=== PATIENT | female | born 1945 | race Caucasian/White ===

== ENCOUNTER 2023-12-15 19:08 | Inpatient (IN) ==
--- NOTE | 2023-12-15 19:33 | Emergency Department Note ---
History of Present Illness General Chief Complaint: Abnormal Labs/Diagnostic Testing Stated Complaint: ABNORMAL LABS/BLOOD WORK, DOC REF Time Seen by Provider: 12/15/23 19:16 History of Present Illness Provider Complaint: + abnormal lab Description of abnormal result: Elevated kidney and liver function test Associated symptoms: + other (Difficulty urinating); no fever, no chills, no chest pain, no shortness of breath, no rash, no malaise or no abdominal pain Home Medications Medication Instructions Recorded Confirmed Type FERROUS SULFATE (FEOSOL) 1 tab PO DAILY ##0 03/19/13 12/11/23 History albuterol sulfate 90 mcg/actuation 2 puff inhalation Q6H PRN 04/15/23 12/11/23 History aerosol inhaler Shortness Of Breath Or Wheezing Elastic Band #1 ea 07/15/23 10/31/23 Rx labetalol 100 mg tablet 50 mg (1/2 x 100 mg) PO BID #90 08/07/23 12/15/23 Rx tabs amlodipine 5 mg tablet 5 mg PO DAILY #90 tabs 10/15/23 12/15/23 Rx atorvastatin 40 mg tablet 40 mg PO DAILY #90 tabs 10/15/23 12/15/23 Rx fluticasone 500 mcg-salmeterol 50 1 inh inhalation DAILY #60 ea 10/15/23 12/15/23 Rx mcg/dose blistr powdr for inhalation (Wixela Inhub) lisinopril 40 mg tablet 40 mg PO DAILY #90 tabs 10/15/23 12/15/23 Rx mirtazapine 15 mg tablet 15 mg PO HS #90 tabs 10/15/23 12/15/23 Rx pramipexole 0.5 mg tablet 0.5 mg PO QPM #90 tabs 10/15/23 12/15/23 Rx zolpidem 5 mg tablet 5 mg PO ONCE PRN insomnia #30 tabs 10/21/23 12/15/23 Rx ergocalciferol (vitamin D2) 1,250 50,000 unit PO WEEKLY #12 caps 10/31/23 12/15/23 Rx mcg (50,000 unit) capsule fexofenadine 180 mg tablet 180 mg PO DAILY #90 tabs 11/10/23 12/15/23 Rx alendronate 70 mg tablet 70 mg PO .once a week 11/28/23 12/15/23 History aspirin 81 mg tablet,delayed 81 mg PO DAILY 11/28/23 12/15/23 History release (Adult Aspirin Regimen) biotin [Hair, Skin and Nails 1 dose PO DAILY 11/28/23 12/15/23 History (biotin)] famotidine 20 mg tablet 20 mg PO BID #60 tabs 12/11/23 12/15/23 Rx fluticasone propionate 50 2 spray intranasal DAILY 12/15/23 12/15/23 History mcg/actuation nasal spray,suspension hydrochlorothiazide 25 mg tablet 25 mg PO QAM 12/15/23 12/15/23 History levothyroxine 75 mcg tablet 75 mcg PO Q OTHER DAY 12/15/23 12/15/23 History Allergies Allergy/AdvReac Type Severity Reaction Status Date / Time aspirin Allergy Severe ASTHMA Verified 12/11/23 13:35 ATTACK clopidogrel Allergy Unknown PT DOESN'T Verified 12/11/23 13:35 REMEMBER erythromycin base AdvReac Unknown NAUSEATED;ABD Verified 12/11/23 13:35 PAIN quinine AdvReac Unknown ABD PAIN Verified 12/11/23 13:35 Sulfa (Sulfonamide AdvReac Unknown ORTEZ;GI UPSET Verified 12/11/23 13:35 Antibiotics) Ammonium Carbonate Allergy Severe SMELLING Uncoded 12/11/23 13:35 SALTS - ASTHMA ATTACK Past Med/Surg History Medical History (Updated 12/15/23 @ 21:03 by Sly Wilson MD) Severe malnutrition Abdominal aortic aneurysm Myotonic muscular dystrophy Insomnia Anxiety Prediabetes Dyslipidemia Asthma Hypertension Hypothyroidism dysalbuminemic hyperthyroxinemia per Dr Lama Measure only TSH. Do not check FT4 or free T3. Positive EJ (antinuclear antibody) Anemia Stage 3b chronic kidney disease Surgical History History of appendectomy H/O right inguinal hernia repair History of cholecystectomy Family History Grandmother (Maternal) Alzheimer disease Mother Asthma Sister Bipolar disorder Depression Diabetes Ovarian cancer Uterine cancer Son Bipolar disorder Diabetes Daughter Bipolar disorder Diabetes Father Myocardial infarction Heart disease Other Coronary heart disease Denies family history of Prostate cancer Deep vein thrombosis Dyslipidemia Kidney disease Breast cancer Lung cancer COPD (chronic obstructive pulmonary disease) Colorectal cancer Pulmonary embolism Cancer Hypertension Stroke Social History Smoking Status: Never smoker Hx Alcohol Use: No Hx Substance Use: No Preferred Language: Serbian Visual Impairment: Limited Hearing Ability: Hard of Hearing Beliefs That Will Affect Care: None marital status: Current Living Situation: Spouse Current Living Situation Comment: and Cat current occupational status: retired and disabled How many Children do You have: 3 Feels Safe at Home: Yes Childhood Exposure to Second-Hand Smoke: Yes Diet: regular Dental Care, Regularly: No Physical Activity Frequency: Does not Exercise Seatbelt Use: sometimes Sunscreen Use: No Physical Exam 2 Vital Signs: Vital Signs - 24 hr 12/15/23 19:11 12/15/23 19:42 12/15/23 19:43 Temperature 36.6 C Temperature Source Temporal Artery Sc an Pulse Rate 85 68 Pulse Rate [Apical ] 72 Pulse Rhythm Regular Pulse Rhythm [Apic al] Regular Pulse Strength [Ap ical] Normal Respiratory Rate 17 19 Respiratory Effort / Characteristics Non-Labored Sponta neous Non-Labored Sponta neous Respiratory Depth Normal Normal Respiratory Patter n Regular Regular Blood Pressure 128/56 L Blood Pressure [Ri ght Arm] 103/53 L Blood Pressure Bethanie n 80 Blood Pressure Bethanie n [Right Arm] 69 Blood Pressure Pos ition Sitting Pulse Oximetry 99 99 Oxygen Delivery Me thod Room Air Room Air Room Air Sepsis Recent Feve r Within 48 Hours No Sepsis New/Unexpla ined Change in Men daria Status No Sepsis Action Take n by Nursing No Action Required 12/15/23 19:48 12/15/23 20:27 Temperature Temperature Source Pulse Rate 68 Pulse Rate [Apical ] 65 Pulse Rhythm Pulse Rhythm [Apic al] Regular Pulse Strength [Ap ical] Normal Respiratory Rate 18 Respiratory Effort / Characteristics Non-Labored Sponta neous Respiratory Depth Normal Respiratory Patter n Agonal Blood Pressure Blood Pressure [Ri ght Arm] 103/53 L Blood Pressure Bethanie n Blood Pressure Bethanie n [Right Arm] 69 Blood Pressure Pos ition Pulse Oximetry 100 Oxygen Delivery Me thod Room Air Sepsis Recent Feve r Within 48 Hours Sepsis New/Unexpla ined Change in Men daria Status Sepsis Action Take n by Nursing Physical Exam: Physical Exam GENERAL: Cachectic appearing. HENT: Exam performed. -Head: Normocephalic and atraumatic. EYES: Conjunctivae and EOM are normal. Pupils are equal, round, and reactive to light. Right eye exhibits no discharge. Left eye exhibits no discharge. No scleral icterus. NECK: Normal range of motion. Neck supple. No JVD present. CV: Normal rate, regular rhythm, normal heart sounds and intact distal pulses. There is no peripheral edema. Palpable radial pulses bue. PULM/CHEST: Effort normal and breath sounds normal. No respiratory distress. No stridor. She has no wheezes. She has no rales. ABD: The abdomen is soft. Bowel sounds are normal. She has no distension. No mass is present. There is no tenderness. There is no rebound, no guarding, no Ruiz's sign and no tenderness at McBurney's point. Rovsig negative MUSC/SKEL: Normal range of motion. There is no peripheral edema, tenderness or deformity. LYMPH: No cervical adenopathy. NEURO: She is alert and oriented to person, place, and time. She has normal strength. No cranial nerve deficit or sensory deficit. Coordination and gait normal. GCS eye subscore is 4. GCS verbal subscore is 5. GCS motor subscore is 6. Cerebellar tests wnl. Course Course 1915: The patient was evaluated in room A3. A complete history and physical exam was performed Cardiac monitoring: An order was placed for continuous cardiac monitoring. The monitor shows a rate of 70 with sinus rhythm interpreted by me 1942: Calcium gluconate ordered given the patient's hyperkalemia and hypocalcemia on outpatient labs. 2057: Vital signs stable. Labs show white blood cell count of 7.38. Hemoglobin 8.9. Coagulation studies within normal limits. Potassium 4.3. Creatinine 2.08. Total bilirubin 2.9 direct bilirubin 1.8. AST 237, improved from 352 earlier this morning. ALT 97 improved from 110 earlier this morning. Alkaline phosphatase of 25 improved from 772. Troponin 49.7, improved from high- sensitivity troponins performed at [facility]. Chest x-ray showed no infiltrate. Imaging shows nonspecific biliary distention but no ductal dilatation. There is a stable AAA. Discussed the case with [facility] hospitalist Dr. Mathis will evaluate the patient for admission. Administered Medications Sodium Chloride (Nss) 1,000 mls @ 125 mls/hr IV .Q8H BAUTISTA Stop: 01/14/24 19:29 Last Admin: 12/15/23 20:25 Dose: 125 mls/hr Documented By: ALBERTINA Discontinued Medications Calcium Gluconate () 1,000 mg in 60 mls @ 240 mls/hr IV NOW STA Stop: 12/15/23 19:57 Last Admin: 12/15/23 20:25 Dose: 240 mls/hr Documented By: ALBERTINA Medical Decision Making Medical Records Attestation: I reviewed the patient's medical records. External medical records reviewed. Patient was admitted from November 24 to November 27, 2023. She was admitted on November 24 after coming first being seen by an urgent care for difficulty breathing. She was found to be hypoxic and sent to the emergency department. At the emergency department the patient was positive for COVID and had a left lower lobe pneumonia. Patient actually had a troponin of 118 followed by 107, lower than her previous troponins. BMP showed a mild hyponatremia and elevated creatinine from her baseline of 2.4. Patient's lactic acid was within normal limits. Her white blood cell count of 18.65. Her LFTs showed AST of 41 and ALT of 64 which were prior to similar. The patient was treated with Zosyn and doxycycline. While in the hospital she was weaned off of oxygen and discharged home. Patient had a follow-up visit with her PCP today after being admitted. PCPs note that the patient has a history of eating problems as well as myotonic dystrophy. According to the PCP's note the patient is very weak and tired and wants to be readmitted because she cannot eat. Patient reported no shortness of breath or chest pain. The patient was having difficulty urinating. CT of the abdomen pelvis according to PCPs note was normal in the hospital. According [facility] the [facility] from [facility] the patient has CT of the abdomen pelvis without contrast on November 24 which showed an abdominal aortic aneurysm which was similar appearance from previous scans measuring 4.1 cm. Patient had outpatient blood work done today which showed a white blood cell count of 10.14 hemoglobin 9.9 potassium of 5.9 creatinine of 1.89 calcium of 7.1 total bilirubin of 2.9 AST 352 ALT 110 alkaline phosphatase 772. Laboratory Data Attestation: I reviewed the patient's lab results. 12/15/23 19:31 12/15/23 Unknown Lab Results 12/15/23 12/15/23 Range/Units 19:31 Unknown WBC 7.38 (4.8-10.8) K/ul RBC 3.16 L (4.20-5.40) M/uL Hgb 8.9 L (12.0-16.0) g/dl Hct 27.9 L (37.0-47.0) % MCV 88.3 (80.0-100.0) fL MCH 28.2 (25.0-34.0) pg MCHC 31.9 L (32.0-36.0) g/dL RDW Std Deviation 49.6 H (36.4-46.3) fL RDW Coeff of [place] 15.3 H (11.5-14.5) % Plt Count 166 (130-400) K/uL MPV 11.8 (9.4-12.4) fL Immature Gran % (Auto) 0.5 % Neut % (Auto) 90.6 % Lymph % (Auto) 5.0 % Power % (Auto) 3.3 % Eos % (Auto) 0.3 % Baso % (Auto) 0.3 % Neut # (Auto) 6.69 H (1.40-6.50) K/uL Lymph # (Auto) 0.37 L (1.20-3.40) K/uL Power # (Auto) 0.24 (0.11-0.59) K/uL Eos # (Auto) 0.02 (0.00-0.50) K/uL Baso # (Auto) 0.02 (0.00-0.20) K/uL Immature Gran # (Auto) 0.04 (0.01-0.20) K/uL PT 12.3 H (9.0-12.0) Seconds INR 1.1 (0.9-1.1) APTT 26 (21-31) Seconds PTT Ratio 0.9 Sodium 135 L (136-145) mmol/L Potassium 4.3 D (3.5-5.1) mmol/L Chloride 110 H (98-107) mmol/L Carbon Dioxide 16 L (21-32) mmol/L Anion Gap 9 (3-11) BUN 33 H (6-23) mg/dl Creatinine 2.08 H (0.6-1.2) mg/dl Est Cr Clr Drug Dosing 12.3 ml/min Est GFR ( Amer) 26.1 ml/min Est GFR (Non-Af Amer) 22.6 ml/min BUN/Creatinine Ratio 15.9 (10-20) Glucose 136 H (70-99(Fasting)) mg/dl Calcium 9.0 (8.6-10.3) mg/dl Magnesium 1.8 (1.7-2.4) mg/dl Total Bilirubin 2.9 H (0.2-1.0) mg/dl Direct Bilirubin 1.8 H (0-0.2) mg/dl AST 237 H (13-39) U/L ALT 97 H (7-52) U/L Alkaline Phosphatase 725 H (34-104) U/L Troponin I High Sens 49.7 H (0-14) pg/ml Total Protein 6.3 (6.0-8.3) gm/dl Albumin 2.9 L (3.4-5.0) gm/dl Lipase 13 (11-82) U/L Imaging Data Attestation: I personally reviewed and interpreted this imaging study as follows: My Impression: Chest x-ray negative. Airway clear. No pneumothorax. No consolidation. No cardiomegaly or cephalization.. No free air under the diaphragm. No fractures of the skeletal structures. Emphysematous lungs. Radiologist's Impression: Abdomen/Pelvis CT 12/15/23 19:25 Exam(s): CT ABDOMEN + PELVIS Without Contrast EXAM: CT Abdomen and Pelvis Without Intravenous Contrast CLINICAL HISTORY: Reason for exam: titi difficulty urinating. TECHNIQUE: Axial computed tomography images of the abdomen and pelvis without intravenous contrast. CTDI is 6.2 mGy and DLP is 266.84 mGy-cm. Automated exposure control was utilized for the study. A dose lowering technique was utilized adhering to the principles of ALARA. COMPARISON: None. FINDINGS: Lung bases: Mild bilateral lower lobe atelectasis . Heart: Cardiac size with coronary artery calcifications. ABDOMEN: Liver: Unremarkable. Gallbladder and bile ducts: Status post cholecystectomy. Nonspecific biliary distention. No ductal dilation. Pancreas: Unremarkable. No ductal dilation. Spleen: Small low-attenuation lesion at the anterior aspect of the spleen measuring 1.3 cm with Hounsfield units suggestive of a cyst otherwise the incompletely characterized. Adrenals: Unremarkable. No mass. Kidneys and ureters: Significant atrophy of the left kidney. Mild to moderate atrophy of the right kidney. No hydronephrosis or intrarenal stone. Stomach and bowel: The stomach is decompressed. Descending colon is incompletely distended, otherwise unremarkable. No mucosal thickening. PELVIS: Appendix: Normal appendix. Bladder: Unremarkable. No stones. Reproductive: Anteverted uterus with atrophy and dystrophic calcifications. ABDOMEN and PELVIS: Intraperitoneal space: Indeterminate scattered punctate calcifications along the left peritoneum at the level of the pelvis, etiology indeterminate. Trace free fluid in the cul-de-sac, nonspecific. No free air. Bones/joints: Degenerative disease of the spine with osteopenia. Scoliosis of the lumbar spine with convexity to the left. No acute fracture. No dislocation. Soft tissues: Unremarkable. Vasculature: Severe calcified atherosclerotic disease throughout the aorta. Aneurysmal dilatation of the proximal abdominal aorta measuring up to 3.8 x 3.8 cm in axial dimension oval total length of approximately 7.6 cm with diffuse tortuosity of aorta. Severe calcified plaque throughout the bilateral common iliac arteries, cannot exclude severe stenosis versus occlusion . Lymph nodes: Unremarkable. No enlarged lymph nodes. Other findings: Postoperative changes at the EG junction. IMPRESSION: 1. Status post cholecystectomy with nonspecific biliary distention. 2. Proximal abdominal aortic aneurysmal dilatation as described. Severe plaque formation to the bilateral common iliac arteries, cannot exclude severe stenosis or occlusion. 3. No acute appendicitis or bowel obstruction. Electronically signed by: Tracy Alejo MD 12/15/23 20:27 PM ECG Data Attestation: I personally reviewed and interpreted this ECG as follows: Rate (beats per minute): 69 Rhythm: normal sinus Findings: no ST depression, no ST elevation or no prolonged QT MDM Narrative 1915: The patient was evaluated in room A3. A complete history and physical exam was performed Cardiac monitoring: An order was placed for continuous cardiac monitoring. The monitor shows a rate of 70 with sinus rhythm interpreted by la 1943: Calcium gluconate ordered given the patient's hyperkalemia and hypocalcemia on outpatient labs. 2057: Vital signs stable. Labs show white blood cell count of 7.38. Hemoglobin 8.9. Coagulation studies within normal limits. Potassium 4.3. Creatinine 2.08. Total bilirubin 2.9 direct bilirubin 1.8. AST 237, improved from 352 earlier this morning. ALT 97 improved from 110 earlier this morning. Alkaline phosphatase of 25 improved from 772. Troponin 49.7, improved from high- sensitivity troponins performed at [facility]. Chest x-ray showed no infiltrate. Imaging shows nonspecific biliary distention but no ductal dilatation. There is a stable AAA. Discussed the case with [facility] hospitalist Dr. Mathis will evaluate the patient for admission. Impression & Plan Transaminitis, Acute kidney injury superimposed on chronic kidney disease, Elevated troponin Discharge Plan Visit Data Chief Complaint: Abnormal Labs/Diagnostic Testing Stated Complaint: ABNORMAL LABS/BLOOD WORK, DOC REF ED Provider: Sly Wilson Discharge Problem: Transaminitis, Acute kidney injury superimposed on chronic kidney disease, Elevated troponin Patient Disposition: Being Evaluated by Hospitalist Forms Stand Alone Forms: My [facility] Prescriptions Prescriptions: No Action FERROUS SULFATE (FEOSOL) 65 MG tablet 1 tab PO DAILY Qty: 0 labetalol 100 mg tablet 50 mg PO BID Qty: 90 1RF fexofenadine 180 mg tablet 180 mg PO DAILY Qty: 90 3RF albuterol sulfate 90 mcg/actuation HFA aerosol inhaler 2 puff inhalation Q6H PRN (Reason: Shortness Of Breath Or Wheezing) (DME) Elastic Band Blue 6 foot See Rx Instructions .Route .MEDSUPPLY Qty: 1 0RF Rx Instructions: As directed tie in loop ergocalciferol (vitamin D2) 1,250 mcg (50,000 unit) capsule 50,000 unit PO WEEKLY Qty: 12 0RF zolpidem 5 mg tablet 5 mg PO ONCE PRN (Reason: insomnia) Qty: 30 5RF amlodipine 5 mg tablet 5 mg PO DAILY Qty: 90 1RF atorvastatin 40 mg tablet 40 mg PO DAILY Qty: 90 1RF fluticasone propion-salmeterol [Wixela Inhub] 500-50 mcg/dose blister with device 1 inh inhalation DAILY Qty: 60 5RF lisinopril 40 mg tablet 40 mg PO DAILY Qty: 90 1RF mirtazapine 15 mg tablet 15 mg PO HS Qty: 90 1RF pramipexole 0.5 mg tablet 0.5 mg PO QPM Qty: 90 1RF famotidine 20 mg tablet 20 mg PO BID Qty: 60 1RF alendronate 70 mg tablet 70 mg PO .once a week biotin [Hair, Skin and Nails (biotin)] 1 dose PO DAILY aspirin [Adult Aspirin Regimen] 81 mg tablet,delayed release (DR/EC) 81 mg PO DAILY levothyroxine 75 mcg tablet 75 mcg PO Q OTHER DAY hydrochlorothiazide 25 mg tablet 25 mg PO QAM fluticasone propionate 50 mcg/actuation spray,suspension 2 spray INTRANASAL DAILY Referrals Referrals: Albino Ramos MD [Primary Care Provider] -
[2023-12-15 20:01] LABS: Hematocrit (blood only) 27.9 % (37.0-47.0); Hemoglobin 8.9 g/dl (12.0-16.0); Mean Corpuscular Hemoglobin 28.2 pg (25.0-34.0); Mean Corpuscular Hgb Conc 31.9 g/dL (32.0-36.0); Mean Corpuscular Volume 88.3 fL (80.0-100.0); Mean Platelet Volume 11.8 fL (9.4-12.4); Platelet Count 166 K/uL (130-400); RDW Coefficient of Variation 15.3 % (11.5-14.5); RDW Standard Deviation 49.6 fL (36.4-46.3); Red Blood Count 3.16 M/uL (4.20-5.40); White Blood Count 7.38 K/ul (4.8-10.8)
[2023-12-15 20:23] LABS: Basophils # (auto) 0.02 K/uL (0.00-0.20); Basophils % (auto) 0.3 %; Eosinophils # (auto) 0.02 K/uL (0.00-0.50); Eosinophils % (auto) 0.3 %; Immature Granulocytes # (auto) 0.04 K/uL (0.01-0.20); Immature Granulocytes % (auto) 0.5 %; Lymphocytes # (auto) 0.37 K/uL (1.20-3.40); Monocytes # (auto) 0.24 K/uL (0.11-0.59); Monocytes % (auto) 3.3 %; Neutrophils # (auto) 6.69 K/uL (1.40-6.50); Neutrophils % (auto) 90.6 %
[2023-12-15] MEDS: SODIUM CHLORIDE 0.9% 1,000 ML IV SCH (20:25)
[2023-12-15] MEDS: CALCIUM GLUCONATE 1,000 MG/60 ML BAG IV STA (20:25)
[2023-12-15 20:26] LABS: INR 1.1 (0.9-1.1); Partial Thromboplastin Ratio 0.9; Partial Thromboplastin Time 26 Seconds (21-31); Prothrombin Time 12.3 Seconds (9.0-12.0)
--- NOTE | 2023-12-15 20:28 | CT Scan Report ---
Exam(s): CT ABDOMEN + PELVIS Without Contrast EXAM: CT Abdomen and Pelvis Without Intravenous Contrast CLINICAL HISTORY: Reason for exam: titi difficulty urinating. TECHNIQUE: Axial computed tomography images of the abdomen and pelvis without intravenous contrast. CTDI is 6.2 mGy and DLP is 266.84 mGy-cm. Automated exposure control was utilized for the study. A dose lowering technique was utilized adhering to the principles of ALARA. COMPARISON: None. FINDINGS: Lung bases: Mild bilateral lower lobe atelectasis . Heart: Cardiac size with coronary artery calcifications. ABDOMEN: Liver: Unremarkable. Gallbladder and bile ducts: Status post cholecystectomy. Nonspecific biliary distention. No ductal dilation. Pancreas: Unremarkable. No ductal dilation. Spleen: Small low-attenuation lesion at the anterior aspect of the spleen measuring 1.3 cm with Hounsfield units suggestive of a cyst otherwise the incompletely characterized. Adrenals: Unremarkable. No mass. Kidneys and ureters: Significant atrophy of the left kidney. Mild to moderate atrophy of the right kidney. No hydronephrosis or intrarenal stone. Stomach and bowel: The stomach is decompressed. Descending colon is incompletely distended, otherwise unremarkable. No mucosal thickening. PELVIS: Appendix: Normal appendix. Bladder: Unremarkable. No stones. Reproductive: Anteverted uterus with atrophy and dystrophic calcifications. ABDOMEN and PELVIS: Intraperitoneal space: Indeterminate scattered punctate calcifications along the left peritoneum at the level of the pelvis, etiology indeterminate. Trace free fluid in the cul-de-sac, nonspecific. No free air. Bones/joints: Degenerative disease of the spine with osteopenia. Scoliosis of the lumbar spine with convexity to the left. No acute fracture. No dislocation. Soft tissues: Unremarkable. Vasculature: Severe calcified atherosclerotic disease throughout the aorta. Aneurysmal dilatation of the proximal abdominal aorta measuring up to 3.8 x 3.8 cm in axial dimension oval total length of approximately 7.6 cm with diffuse tortuosity of aorta. Severe calcified plaque throughout the bilateral common iliac arteries, cannot exclude severe stenosis versus occlusion . Lymph nodes: Unremarkable. No enlarged lymph nodes. Other findings: Postoperative changes at the EG junction. IMPRESSION: 1. Status post cholecystectomy with nonspecific biliary distention. 2. Proximal abdominal aortic aneurysmal dilatation as described. Severe plaque formation to the bilateral common iliac arteries, cannot exclude severe stenosis or occlusion. 3. No acute appendicitis or bowel obstruction. Electronically signed by: Tracy Alejo MD 12/15/23 20:27 PM
[2023-12-15 20:32] LABS: Troponin I High Sensitivity 49.7 pg/ml (0-14)
[2023-12-15 20:34] LABS: Potassium 4.3 mmol/L (3.5-5.1)
[2023-12-15 20:35] LABS: Albumin Level 2.9 gm/dl (3.4-5.0); BUN Creatinine Ratio 15.9 (10-20); Bilirubin Direct 1.8 mg/dl (0-0.2); Bilirubin,Total 2.9 mg/dl (0.2-1.0); Creatinine Clr Calc Pharmacy 12.3 ml/min; Est GFR (African American) 26.1 ml/min; Est GFR (Non-African American) 22.6 ml/min; Magnesium 1.8 mg/dl (1.7-2.4); Total Protein 6.3 gm/dl (6.0-8.3)
--- NOTE | 2023-12-15 20:53 | History & Physical Report ---
Date of Service December 15, 2023 Assessment & Plan (1) Elevated liver transaminase level: Plan: Intermittent abdominal pain since Monday 12/11 with an acute worsening the evening of 12/13 Bilirubin 2.9, AST 237, ALT 97, and alk phos 725 S/p cholecystectomy and appendectomy A/P CT revealed unremarkable pancreas; severe plaque formation to the bilateral common iliac arteries; patient was aware of plaque formation prior to admission, and would not like any vascular intervention at this time She is unsure why she is not currently on blood thinners; currently on aspirin and atorvastatin daily, will continue inpatient Lactate and VBG ordered, pending MRCP ordered, pending to look at common bile duct/hepatic duct Gastroenterology consulted A.m. 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 labs (4) Elevated troponin: Plan: Troponin elevated at 49.7 on arrival, repeat pending EKG revealed NSR at 69 bpm; QTc 430 Echo performed on 11/26/2023 at [facility] revealed LVEF at 69% and grade 1 (mildly abnormal) diastolic Clinically, patient denies chest pain, SOB, pleuritic CP Continuous telemetry monitoring (5) Hyperkalemia: Plan: K 5.9-->4.3 on arrival after receiving fluids Given calcium gluconate in the ED BMP recheck ordered, pending (6) Sleep apnea: Plan: Not currently on CPAP (7) Myotonic dystrophy: Plan: Chronic; noted (8) Hypotension: Plan: BP 103/53 at time of admission Hold labetalol, hydrochlorothiazide for now Patient is unsure if she is on amlodipine, but believes she was taking in the past for leg swelling (9) Anemia: Plan: Hgb 9.9-->8.9 on arrival May be chronic secondary to CKD with dilution secondary to IVF Recheck a.m. labs Plan Disposition: Admit to PCU telemetry Full code Dietitian consulted given severe malnutrition; lactose intolerance VTE PPx: Lovenox 5000mg SQ q12h History of Present Illness Chief Complaint: Abnormal lab/diagnostic testing Primary Care Provider: Albino Ramos MD Kat is a 78-year-old female with PMH of myotonic dystrophy, CKD, abnormal weight loss, restless leg syndrome, and dysalbuminemic hyperthyroxinemia. She presented at the behest of her PCP on 12/14 for abnormal liver and kidney labs drawn outpatient. Patient also notes she has been having intermittent abdominal pain that started on Monday 12/11 with an acute worsening the evening of Wednesday 12/13. Patient is unsure how long it usually lasts, but notes last night it lasted for several hours and her RLQ. She is unable to characterize the pain, but reports it is 10/10 at its worst. She did not take any medicine at the time for her pain. Laying down after 2 hours did not resolve the pain. She is unsure if it is worse with eating as she has not been eating much due to her myotonic dystrophy. Patient notes that she has lost 20 pounds over the past month, and has had gradual weight loss since 2020 since having COVID (which she has had 3 times). Patient denies smoking, tobacco use, and alcohol use. She denies any recent injuries to her abdomen or pelvis. She does note that she fell last summer, and that she has had some difficulty with ambulation; amb ulates with a walker/cane at baseline. She also notes that she has a "blood clot" in her aorta which she would not like any surgical interventions for. She is unable to explain why she is not currently on a blood thinner, but notes she does take baby aspirin; she notes she is unable to take more than 81 mg as she has an aspirin allergy and will exacerbate her asthma. Of note, the patient was recently admitted at [facility] for COVID for 4 days at the beginning of December; required oxygen at the time. No supplemental oxygen use or CPAP at home. Patient reports she did not take any of her regular morning medications today; she manages her medications at home. She does have a history of abdominal surgeries, notes that she is s/p appendectomy and cholecystectomy. Patient is mildly hypotensive at 103/53 at time of admission; vitals otherwise stable. ED course: NSS 1000 mL IV Magnesium sulfate 1 g IV Calcium gluconate 1000 mg IV ROS: Patient endorses sweating, unclear if fever was present, chills, dry cough, intermittent abdominal pain, diarrhea x1 episode, urinary s/s, urinary retention, dysuria, back pain (ongoing) Patient denies chest pain, SOB, pleuritic CP, chest palpitations, nausea, vomiting, blood in the urine/stool, burning with urination, saddle anesthesia, or N/T in the legs. Allergies Allergy/AdvReac Type Severity Reaction Status Date / Time aspirin Allergy Severe ASTHMA Verified 12/11/23 13:35 ATTACK clopidogrel Allergy Unknown PT DOESN'T Verified 12/11/23 13:35 REMEMBER erythromycin base AdvReac Unknown NAUSEATED;ABD Verified 12/11/23 13:35 PAIN quinine AdvReac Unknown ABD PAIN Verified 12/11/23 13:35 Sulfa (Sulfonamide AdvReac Unknown ORTEZ;GI UPSET Verified 12/11/23 13:35 Antibiotics) Ammonium Carbonate Allergy Severe SMELLING Uncoded 12/11/23 13:35 SALTS - ASTHMA ATTACK Home Medications Medication Instructions Recorded Confirmed Type albuterol sulfate 90 mcg/actuation 2 puff inhalation Q6H PRN 04/15/23 12/15/23 History aerosol inhaler Shortness Of Breath Or Wheezing Elastic Band #1 ea 07/15/23 12/15/23 Rx labetalol 100 mg tablet 50 mg (1/2 x 100 mg) PO BID #90 08/07/23 12/15/23 Rx tabs amlodipine 5 mg tablet 5 mg PO DAILY #90 tabs 10/15/23 12/15/23 Rx atorvastatin 40 mg tablet 40 mg PO DAILY #90 tabs 10/15/23 12/15/23 Rx fluticasone 500 mcg-salmeterol 50 1 inh inhalation DAILY #60 ea 10/15/23 12/15/23 Rx mcg/dose blistr powdr for inhalation (Wixela Inhub) lisinopril 40 mg tablet 40 mg PO DAILY #90 tabs 10/15/23 12/15/23 Rx mirtazapine 15 mg tablet 15 mg PO HS #90 tabs 10/15/23 12/15/23 Rx pramipexole 0.5 mg tablet 0.5 mg PO QPM #90 tabs 10/15/23 12/15/23 Rx zolpidem 5 mg tablet 5 mg PO ONCE PRN insomnia #30 tabs 10/21/23 12/15/23 Rx ergocalciferol (vitamin D2) 1,250 50,000 unit PO WEEKLY #12 caps 10/31/23 Rx mcg (50,000 unit) capsule fexofenadine 180 mg tablet 180 mg PO DAILY #90 tabs 11/10/23 12/15/23 Rx alendronate 70 mg tablet 70 mg PO .once a week 11/28/23 12/15/23 History aspirin 81 mg tablet,delayed 81 mg PO DAILY 11/28/23 12/15/23 History release (Adult Aspirin Regimen) famotidine 20 mg tablet 20 mg PO BID #60 tabs 12/11/23 12/15/23 Rx ferrous sulfate 325 mg (65 mg 325 mg PO DAILY 12/15/23 12/15/23 History iron) tablet (Feosol) fluticasone propionate 50 2 spray intranasal DAILY 12/15/23 12/15/23 History mcg/actuation nasal spray,suspension hydrochlorothiazide 25 mg tablet 25 mg PO QAM 12/15/23 12/15/23 History levothyroxine 75 mcg tablet 75 mcg PO Q OTHER DAY 12/15/23 12/15/23 History Past Med/Surg History Medical History (Updated 12/15/23 @ 22:16 by Philip Mcgovern PA-C) Severe malnutrition Abdominal aortic aneurysm Myotonic muscular dystrophy Insomnia Anxiety Prediabetes Dyslipidemia Asthma Hypertension Hypothyroidism dysalbuminemic hyperthyroxinemia per Dr Lama Measure only TSH. Do not check FT4 or free T3. Positive EJ (antinuclear antibody) Anemia Stage 3b chronic kidney disease Surgical History History of appendectomy H/O right inguinal hernia repair History of cholecystectomy Family History Grandmother (Maternal) Alzheimer disease Mother Asthma Sister Bipolar disorder Depression Diabetes Ovarian cancer Uterine cancer Son Bipolar disorder Diabetes Daughter Bipolar disorder Diabetes Father Myocardial infarction Heart disease Other Coronary heart disease Denies family history of Prostate cancer Deep vein thrombosis Dyslipidemia Kidney disease Breast cancer Lung cancer COPD (chronic obstructive pulmonary disease) Colorectal cancer Pulmonary embolism Cancer Hypertension Stroke Social History Smoking Status: Former smoker Hx Alcohol Use: No Hx Substance Use: No Preferred Language: Greenlandic Communication Ability: Effective Visual Impairment: Limited Hearing Ability: Hard of Hearing Housing Case Manager Required: No Beliefs That Will Affect Care: None marital status: Current Living Situation: Family Current Living Situation Comment: and Cat current occupational status: retired and disabled How many Children do You have: 3 Feels Safe at Home: Yes Safety Concerns: Feels Safe At This Time Childhood Exposure to Second-Hand Smoke: Yes Diet: regular Dental Care, Regularly: No Physical Activity Frequency: Does not Exercise Seatbelt Use: sometimes Sunscreen Use: No Assistive Devices: Walker Review of Systems Review of Systems: See HPI above Physical Exam Physical Exam: General: no acute distress; pleasant affect; non-toxic appearing; frail; cachectic; cooperative HEENT: normocephalic, atraumatic; no scleral icterus; cataracts; dry mucus membrane; hard of hearing Neck: supple; no lymphadenopathy; trachea midline Skin: Notable pallor; warm, dry without signs of tenting; no cyanosis; no rashes, bruising, lesions, or erythema noted CV: chest wall NTP; RRR; split S1/S2; no murmurs/rubs/gallops; pulses intact and symmetric at radial, DP, and PT Lungs: no acute respiratory distress; symmetrical chest wall expansion; clear breath sounds across all lung dennison w/o adventitious sounds; no wheezing ABD: Soft, NTP; RUQ NTP; BS present; no rebound/guarding; no ascites; no distention; no signs of bruising, rashes, active bleeding abdomen MSK: no tics or fasciculations; no edema noted in the LEs b/l, nonerythematous Neuro: A&Ox3; normal mood and affect; fluent speech; no focal deficits; sensation grossly intact in the LEs b/l Results & Data Results & Data Vital Signs (Past 12 Hours) Vital Signs Temp Pulse Pulse Resp BP BP Pulse Ox 12/15/23 20:27 65 18 103/53 L 100 12/15/23 19:48 68 12/15/23 19:43 68 99 12/15/23 19:42 72 19 103/53 L 99 12/15/23 19:11 36.6 C 85 17 128/56 L O2 Del Method 12/15/23 20:27 Room Air 12/15/23 19:48 12/15/23 19:43 Room Air 12/15/23 19:42 Room Air 12/15/23 19:11 Room Air Laboratory Results Abnormal lab results 12/15/23 12/15/23 Range/Units 19:31 Unknown RBC 3.16 L (4.20-5.40) M/uL Hgb 8.9 L (12.0-16.0) g/dl Hct 27.9 L (37.0-47.0) % MCHC 31.9 L (32.0-36.0) g/dL RDW Std Deviation 49.6 H (36.4-46.3) fL RDW Coeff of [place] 15.3 H (11.5-14.5) % Neut # (Auto) 6.69 H (1.40-6.50) K/uL Lymph # (Auto) 0.37 L (1.20-3.40) K/uL PT 12.3 H (9.0-12.0) Seconds Sodium 135 L (136-145) mmol/L Chloride 110 H (98-107) mmol/L Carbon Dioxide 16 L (21-32) mmol/L BUN 33 H (6-23) mg/dl Creatinine 2.08 H (0.6-1.2) mg/dl Glucose 136 H (70-99(Fasting)) mg/dl Total Bilirubin 2.9 H (0.2-1.0) mg/dl Direct Bilirubin 1.8 H (0-0.2) mg/dl AST 237 H (13-39) U/L ALT 97 H (7-52) U/L Alkaline Phosphatase 725 H (34-104) U/L Troponin I High Sens 49.7 H (0-14) pg/ml Albumin 2.9 L (3.4-5.0) gm/dl Diagnostic Findings Abdomen/Pelvis CT 12/15/23 19:25 Exam(s): CT ABDOMEN + PELVIS Without Contrast EXAM: CT Abdomen and Pelvis Without Intravenous Contrast CLINICAL HISTORY: Reason for exam: cecil difficulty urinating. TECHNIQUE: Axial computed tomography images of the abdomen and pelvis without intravenous contrast. CTDI is 6.2 mGy and DLP is 266.84 mGy-cm. Automated exposure control was utilized for the study. A dose lowering technique was utilized adhering to the principles of ALARA. COMPARISON: None. FINDINGS: Lung bases: Mild bilateral lower lobe atelectasis . Heart: Cardiac size with coronary artery calcifications. ABDOMEN: Liver: Unremarkable. Gallbladder and bile ducts: Status post cholecystectomy. Nonspecific biliary distention. No ductal dilation. Pancreas: Unremarkable. No ductal dilation. Spleen: Small low-attenuation lesion at the anterior aspect of the spleen measuring 1.3 cm with Hounsfield units suggestive of a cyst otherwise the incompletely characterized. Adrenals: Unremarkable. No mass. Kidneys and ureters: Significant atrophy of the left kidney. Mild to moderate atrophy of the right kidney. No hydronephrosis or intrarenal stone. Stomach and bowel: The stomach is decompressed. Descending colon is incompletely distended, otherwise unremarkable. No mucosal thickening. PELVIS: Appendix: Normal appendix. Bladder: Unremarkable. No stones. Reproductive: Anteverted uterus with atrophy and dystrophic calcifications. ABDOMEN and PELVIS: Intraperitoneal space: Indeterminate scattered punctate calcifications along the left peritoneum at the level of the pelvis, etiology indeterminate. Trace free fluid in the cul-de-sac, nonspecific. No free air. Bones/joints: Degenerative disease of the spine with osteopenia. Scoliosis of the lumbar spine with convexity to the left. No acute fracture. No dislocation. Soft tissues: Unremarkable. Vasculature: Severe calcified atherosclerotic disease throughout the aorta. Aneurysmal dilatation of the proximal abdominal aorta measuring up to 3.8 x 3.8 cm in axial dimension oval total length of approximately 7.6 cm with diffuse tortuosity of aorta. Severe calcified plaque throughout the bilateral common iliac arteries, cannot exclude severe stenosis versus occlusion . Lymph nodes: Unremarkable. No enlarged lymph nodes. Other findings: Postoperative changes at the EG junction. IMPRESSION: 1. Status post cholecystectomy with nonspecific biliary distention. 2. Proximal abdominal aortic aneurysmal dilatation as described. Severe plaque formation to the bilateral common iliac arteries, cannot exclude severe stenosis or occlusion. 3. No acute appendicitis or bowel obstruction. Electronically signed by: Tracy Alejo MD 12/15/23 20:27 PM [facility] [place] [phone] Magnetic Resonance Report Patient: KAT MCKEON Admit Date: 12/15/23 MR#: [id number] Address1: [address] [id number] [place] Acct ID:[id number] Address2: Date: 1945 [facility] Zip: [place] [id number] Age: 78 Location: [facility] Sex: F [address]/Bed: [address] Att Phy: Celia Mathis D.O. Diagnosis: ABDOMINAL PAIN, ABDNORMAL OUTPATIENT LABS Gabriella Phy: Albino Ramos MD Service Date: 12/15/23 [facility] Phy: Interpreting Phy: Tracy Alejo MDAdmit Phy: Celia Mathis D.O. Ordering Phy: Philip Mcgovern PA-C cc: ~ Exam(s): MRI MRCP EXAM: MR Abdomen Without Intravenous Contrast, MRCP Protocol CLINICAL HISTORY: Reason for exam: Elevated transaminases. TECHNIQUE: Multiplanar magnetic resonance images of the abdomen without intravenous contrast using MRCP protocol. COMPARISON: CT dated 12/15/2023. FINDINGS: Lower thorax: There is left lower lobe atelectasis. Bile ducts: There is dilatation of the common bile duct measuring approximately 8.9 mm at the pancreatic head and approximately 10.3 mm in the hepatic hilum. There is a stone within the distal common bile duct measuring 7.5 mm. There is no specific dilatation of the biliary system, more significant centrally. Gallbladder: Nonvisualized gallbladder consistent with known history of prior cholecystectomy. Liver: Unremarkable. Pancreas: See above. Spleen: Unremarkable. No splenomegaly. Adrenals: Unremarkable. No mass. Kidneys and ureters: There is atrophy of the left kidney. No hydronephrosis. Stomach and bowel: Unremarkable. No obstruction. Vasculature: There is aneurysmal dilatation of the proximal abdominal aorta measuring up to 3.7 x 3.7 cm with visualization of a mural thrombus. IMPRESSION: 1. Status post cholecystectomy with central intrahepatic and extrahepatic biliary distention, the common hepatic duct reaching 10.3 mm of in maximum dimension. There is a stone within the distal common bile duct measuring 7.5 mm. 2. Abdominal aortic aneurysm measured at approximately 3.7 cm. 3. Left lower lobe atelectasis. 4. Atrophy of the left kidney. Electronically signed by: Tracy Alejo MD 12/16/23 00:23 AM Dictated: 12/16/23 0023 Transcribed: 12/16/23 0023 Code Status & VTE Plan Code Status Full code VTE Prophylaxis Plan VTE Prophylaxis will be ordered: Yes Supervising Physician Co-Signing Physician Notes Patient seen and examined, chart reviewed, case discussed with ANTOLIN Mcgovern and I agree with the assessment and plan as documented above. In brief, patient is a 78-year-old female with history of myotonic dystrophy, CKD presenting with intermittent abdominal pain ongoing since 12/12/2023 as well as decreased p.o. tolerance and weight loss. Patient had outpatient labs performed by her PCP and was called to come in due to worsening renal function. She was recently admitted to [facility] at the beginning of December for COVID infection. She required oxygen. On physical exam patient is ill and cachectic in appearance Dry mucous membranes, dentures in place, neck supple + S1, S2, regular, no murmur/rub/gallops Lungs CTA with no rales/rhonchi or wheezes Abdomen with mild right upper quadrant tenderness, no rebound/guarding or peritonitis, no ascites Extremities warm and well-perfused with 1+ DP pulses Labs and images reviewed. Significant for normochromic/normocytic anemia with Hgb = 8.9, HCT = 27.9. Normal white blood cell count but with elevated neutrophil to lymphocyte ratio suggestive of systemic stress. Normal coag panel. chemistry with elevated BUN = 33, creatinine = 2.08, HCO3 = 16 Abnormal LFTs with T. bili = 2.9, D bili = 1.8, AST = 237, ALT = 97, AP = 725. MRCP obtained which revealed central intrahepatic and extrahepatic biliary distention with common bile duct reaching 10.3 mm in maximum dimension. A stone present within the distal common bile duct measuring 7.5 mm. Patient noted to have abdominal aortic aneurysm as well as extensive calcifications of vasculature. Repeat hemoglobin this a.m. = 6.4. No obvious signs of bleeding Assessment/plan Choledocholithiasispatient with large stone noted within the distal common bile duct measuring 7.5 mm. She is afebrile And hemodynamically stable with no leukocytosis although her WBC count of 7.3 it is higher than her baseline. Will admit to PCU Initiate Zosyn due to obstructive stone Keep patient n.p.o. GI consultation appreciated for possible ERCP Holding aspirin and chemical DVT prophylaxis for now Anemiapatient with hemoglobin = 6.4 after IV hydration. No obvious blood loss. Normochromic/normocytic Consented for blood Will transfuse 2 units PRBCs Repeat CBC in the morning Malnutritionpatient with poor oral intake. She is to meet with general surgery to discuss possible feeding tube. Management of acute issues, choledocholithiasis as above N.p.o. for now Nutrition/dietary consultation appreciated CECIL on CKD. Patient with improving renal function with IV hydration. Suspect prerenal in the setting of poor oral intake. Continue IV fluids Hold nephrotoxic agents Repeat chemistry PG Care Time/CCT Total # of Minutes Spent Total Time Spent with Patient: Total time spent is greater than 50% in coordination of care (as documented) at patient's floor/unit and/or counseling patient: [place] [address] INT INP/OBS CARE 3/75MIN Patient Type New Medical Decision Making High Complexity Diagnoses Elevated liver transaminase level R74.01 Severe malnutrition E43 Acute kidney injury superimposed on chronic kidney disease N17.9; N18.9 Elevated troponin R79.89 Hyperkalemia E87.5 Sleep apnea G47.30 Myotonic dystrophy G71.11 Hypotension I95.9 Anemia D64.9
[2023-12-15] MEDS: MAGNESIUM SULFATE / D5W 1 GM/100 ML BAG IV ONE (22:22)
[2023-12-15 22:37] LABS: Appearance Urine Clear (Clear); Bacteria Urine Automated Negative (Negative); Blood Urine Negative (Negative); Color Urine Dark Yellow; Epithelial Cell Urine Auto >30 /lpf (0-5); Glucose Urine UA Negative (Negative); Ketones Urine Trace (Negative); Leukocyte Esterase Urine 1+ (Negative); Nitrite Urine Positive (Negative); Protein Urine Trace (Negative); RBC Urine Automated 0-4 /hpf (0-4); Specific Gravity Urine 1.015 (1.000-1.030); Urobilinogen Urine Positive (Negative)
[2023-12-15 22:40] LABS: Bilirubin Urine 2+ (Negative)
[2023-12-15 22:47] LABS: Base Excess VBG -8.8 mEq/L; HCO3 VBG 18 mmol/L; Oxygen Saturation VBG < 60.0 %; PCO2 VBG 41 mmHg (38-50); PO2 VBG 24 mmHg; pH VBG 7.25 (7.36-7.41)
[2023-12-15 23:06] LABS: BUN Creatinine Ratio 16.1 (10-20); Calcium 8.8 mg/dl (8.6-10.3); Creatinine Clr Calc Pharmacy 13.3 ml/min; Est GFR (African American) 28.6 ml/min; Est GFR (Non-African American) 24.7 ml/min; Potassium 4.1 mmol/L (3.5-5.1)
[2023-12-15 23:52] LABS: Troponin I High Sensitivity 51.3 pg/ml (0-14)
[2023-12-16] MEDS ORDERED: ONDANSETRON INJ 2 MG/ML 2 ML VIAL IV PRN (00:10)
--- NOTE | 2023-12-16 00:24 | Magnetic Resonance Report ---
Exam(s): MRI MRCP EXAM: MR Abdomen Without Intravenous Contrast, MRCP Protocol CLINICAL HISTORY: Reason for exam: Elevated transaminases. TECHNIQUE: Multiplanar magnetic resonance images of the abdomen without intravenous contrast using MRCP protocol. COMPARISON: CT dated 12/15/2023. FINDINGS: Lower thorax: There is left lower lobe atelectasis. Bile ducts: There is dilatation of the common bile duct measuring approximately 8.9 mm at the pancreatic head and approximately 10.3 mm in the hepatic hilum. There is a stone within the distal common bile duct measuring 7.5 mm. There is no specific dilatation of the biliary system, more significant centrally. Gallbladder: Nonvisualized gallbladder consistent with known history of prior cholecystectomy. Liver: Unremarkable. Pancreas: See above. Spleen: Unremarkable. No splenomegaly. Adrenals: Unremarkable. No mass. Kidneys and ureters: There is atrophy of the left kidney. No hydronephrosis. Stomach and bowel: Unremarkable. No obstruction. Vasculature: There is aneurysmal dilatation of the proximal abdominal aorta measuring up to 3.7 x 3.7 cm with visualization of a mural thrombus. IMPRESSION: 1. Status post cholecystectomy with central intrahepatic and extrahepatic biliary distention, the common hepatic duct reaching 10.3 mm of in maximum dimension. There is a stone within the distal common bile duct measuring 7.5 mm. 2. Abdominal aortic aneurysm measured at approximately 3.7 cm. 3. Left lower lobe atelectasis. 4. Atrophy of the left kidney. Electronically signed by: Tracy Alejo MD 12/16/23 00:23 AM
[2023-12-16] MEDS: ZOLPIDEM TARTRATE 5 MG TAB PO PRN (01:21)
[2023-12-16] MEDS: LACTATED RINGER'S 1,000 ML IV SCH (01:21)
[2023-12-16] MEDS: HEPARIN SOD 5,000 UNIT/0.5 ML VIAL SQ SCH (01:56)
[2023-12-16] MEDS: PIPERACILLIN/TAZOBACTAM 4.5 GM/100 ML BAG IV ONE (02:49)
[2023-12-16 04:49] LABS: Albumin Level 2.1 gm/dl (3.4-5.0); BUN Creatinine Ratio 16.5 (10-20); Bilirubin Direct 1.3 mg/dl (0-0.2); Bilirubin,Total 1.9 mg/dl (0.2-1.0); Calcium 8.2 mg/dl (8.6-10.3); Creatinine Clr Calc Pharmacy 15.1 ml/min; Est GFR (African American) 33.4 ml/min; Est GFR (Non-African American) 28.8 ml/min; Potassium 3.8 mmol/L (3.5-5.1); Total Protein 4.5 gm/dl (6.0-8.3)
[2023-12-16 04:57] LABS: Hematocrit (blood only) 20.7 % (37.0-47.0); Hemoglobin 6.4 g/dl (12.0-16.0); Mean Corpuscular Hemoglobin 27.5 pg (25.0-34.0); Mean Corpuscular Hgb Conc 30.9 g/dL (32.0-36.0); Mean Corpuscular Volume 88.8 fL (80.0-100.0); Mean Platelet Volume 11.5 fL (9.4-12.4); Platelet Count 113 K/uL (130-400); RDW Coefficient of Variation 15.3 % (11.5-14.5); RDW Standard Deviation 48.6 fL (36.4-46.3); Red Blood Count 2.33 M/uL (4.20-5.40); White Blood Count 3.96 K/ul (4.8-10.8)
[2023-12-16 05:16] LABS: Basophils # (auto) 0.01 K/uL (0.00-0.20); Basophils % (auto) 0.3 %; Eosinophils # (auto) 0.12 K/uL (0.00-0.50); Immature Granulocytes # (auto) 0.01 K/uL (0.01-0.20); Immature Granulocytes % (auto) 0.3 %; Lymphocytes # (auto) 0.49 K/uL (1.20-3.40); Lymphocytes % (auto) 12.4 %; Monocytes # (auto) 0.22 K/uL (0.11-0.59); Monocytes % (auto) 5.6 %; Neutrophils # (auto) 3.11 K/uL (1.40-6.50); Neutrophils % (auto) 78.4 %; RBC Morphology Unremarkable
[2023-12-16] MEDS ORDERED: SODIUM CHLORIDE 0.9% 250 ML IV PRN (05:18)
--- NOTE | 2023-12-16 07:37 | XRay Report ---
XR chest 2V PA/lateral CLINICAL HISTORY: Cough. COMPARISON STUDY: Chest radiograph December 15, 2023 at 11:45 AM. FINDINGS: Lung volumes are normal. Lungs are clear. There is no pneumothorax or pleural effusion. Car diac size is normal. Mediastinal contours are normal. There is no evidence for pulmonary edema. Cary cystectomy clips and additional upper abdominal surgical clips are incidentally noted. IMPRESSION: No acute cardiopulmonary findings. ACT 112: Negative or not required by law. Electronically signed by: Sunil Hightower M.D. 12/16/2023 7:36 AM
[2023-12-16] MEDS: FERROUS SULFATE 325 MG TAB PO SCH (08:02)
[2023-12-16] MEDS: FEXOFENADINE HCL 180 MG TAB PO SCH (08:02)
[2023-12-16] MEDS: LEVOTHYROXINE SODIUM 75 MCG TABLET PO SCH (08:02)
[2023-12-16] MEDS: FAMOTIDINE 20 MG TAB PO SCH (08:02)
[2023-12-16] MEDS: FLUTICASONE/VILANTEROL 200/25MCG 14 PUFFS/INHALER INH SCH (08:04)
[2023-12-16] MEDS: FLUTICASONE PROPIONATE NA SPR 16 GM BTL SCH (08:04)
[2023-12-16] MEDS ORDERED: ATORVASTATIN 40 MG TAB PO SCH (09:00)
[2023-12-16] MEDS ORDERED: ASPIRIN 81 MG ECTAB PO SCH (09:00)
--- NOTE | 2023-12-16 09:12 | Gastrointestinal Consultation ---
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 Please call with any acute changes, questions or concerns. Please see addendum below with additional recommendation from my supervising physician. Supervising Physician Co-Signing Physician Notes Agree with pe and plan as documented. Very thin female reporting mild abdominal pain + MRCP imaging Transfer to [facility] is pending. History of Present Illness Reason for Consultation: transaminitis, malnutrtion Attending Physician: Saundra Larose MD History of Present Illness 78 year old female with history of myotonic dystrophy, CKD, abnormal weight loss, restless leg syndrome, and dysalbuminemic hyperthyroxinemia admitted through the ED w/ abnormal labs. GI was asked to evaluate for transaminitis and malnutrition. She notes she had COVID x 2. Once 2/3 years ago and once about 1-2 weeks ago. She notes since both infections, she has had bad weight loss, no taste or smell. Denies abd pain. No nausea, vomiting. No diarrhea to constipation. Denies black or bloody stools. No report of black or bloody emesis. No fever, chills, CP, SOB. HGB 8.9 --> 6.4 HCT 27.9 --> 20.7 Tbili 2.9 --> 1.9 AST 237 --> 129 ALT 97 --> 64 ALKP 725 --> 494 MRCP 2023: Status post cholecystectomy with central intrahepatic and extrahepatic biliary distention, the common hepatic duct reaching 10.3 mm of in maximum dimension. There is a stone within the distal common bile duct measuring 7.5 mm. CTAP 2023: Status post cholecystectomy with nonspecific biliary distention. Allergies Allergy/AdvReac Type Severity Reaction Status Date / Time aspirin Allergy Severe ASTHMA Verified 12/11/23 13:35 ATTACK clopidogrel Allergy Unknown PT DOESN'T Verified 12/11/23 13:35 REMEMBER erythromycin base AdvReac Unknown NAUSEATED;ABD Verified 12/11/23 13:35 PAIN quinine AdvReac Unknown ABD PAIN Verified 12/11/23 13:35 Sulfa (Sulfonamide AdvReac Unknown ORTEZ;GI UPSET Verified 12/11/23 13:35 Antibiotics) Ammonium Carbonate Allergy Severe SMELLING Uncoded 12/11/23 13:35 SALTS - ASTHMA ATTACK Home Medications Medication Instructions Recorded Confirmed Type albuterol sulfate 90 mcg/actuation 2 puff inhalation Q6H PRN 04/15/23 12/15/23 History aerosol inhaler Shortness Of Breath Or Wheezing Elastic Band #1 ea 07/15/23 12/15/23 Rx labetalol 100 mg tablet 50 mg (1/2 x 100 mg) PO BID #90 08/07/23 12/15/23 Rx tabs amlodipine 5 mg tablet 5 mg PO DAILY #90 tabs 10/15/23 12/15/23 Rx atorvastatin 40 mg tablet 40 mg PO DAILY #90 tabs 10/15/23 12/15/23 Rx fluticasone 500 mcg-salmeterol 50 1 inh inhalation DAILY #60 ea 10/15/23 12/15/23 Rx mcg/dose blistr powdr for inhalation (Wixela Inhub) lisinopril 40 mg tablet 40 mg PO DAILY #90 tabs 10/15/23 12/15/23 Rx mirtazapine 15 mg tablet 15 mg PO HS #90 tabs 10/15/23 12/15/23 Rx pramipexole 0.5 mg tablet 0.5 mg PO QPM #90 tabs 10/15/23 12/15/23 Rx zolpidem 5 mg tablet 5 mg PO ONCE PRN insomnia #30 tabs 10/21/23 12/15/23 Rx ergocalciferol (vitamin D2) 1,250 50,000 unit PO WEEKLY #12 caps 10/31/23 12/15/23 Rx mcg (50,000 unit) capsule fexofenadine 180 mg tablet 180 mg PO DAILY #90 tabs 11/10/23 12/15/23 Rx alendronate 70 mg tablet 70 mg PO .once a week 11/28/23 12/15/23 History aspirin 81 mg tablet,delayed 81 mg PO DAILY 11/28/23 12/15/23 History release (Adult Aspirin Regimen) famotidine 20 mg tablet 20 mg PO BID #60 tabs 12/11/23 12/15/23 Rx ferrous sulfate 325 mg (65 mg 325 mg PO DAILY 12/15/23 12/15/23 History iron) tablet (Feosol) fluticasone propionate 50 2 spray intranasal DAILY 12/15/23 12/15/23 History mcg/actuation nasal spray,suspension hydrochlorothiazide 25 mg tablet 25 mg PO QAM 12/15/23 12/15/23 History levothyroxine 75 mcg tablet 75 mcg PO Q OTHER DAY 12/15/23 12/15/23 History Patient History Medical History (Updated 12/15/23 @ 22:16 by Philip Mcgovern PA-C) Severe malnutrition Abdominal aortic aneurysm Myotonic muscular dystrophy Insomnia Anxiety Prediabetes Dyslipidemia Asthma Hypertension Hypothyroidism dysalbuminemic hyperthyroxinemia per Dr Lama Measure only TSH. Do not check FT4 or free T3. Positive EJ (antinuclear antibody) Anemia Stage 3b chronic kidney disease Surgical History History of appendectomy H/O right inguinal hernia repair History of cholecystectomy Family History Grandmother (Maternal) Alzheimer disease Mother Asthma Sister Bipolar disorder Depression Diabetes Ovarian cancer Uterine cancer Son Bipolar disorder Diabetes Daughter Bipolar disorder Diabetes Father Myocardial infarction Heart disease Other Coronary heart disease Denies family history of Prostate cancer Deep vein thrombosis Dyslipidemia Kidney disease Breast cancer Lung cancer COPD (chronic obstructive pulmonary disease) Colorectal cancer Pulmonary embolism Cancer Hypertension Stroke Social History Smoking Status: Former smoker Hx Alcohol Use: No Hx Substance Use: No Preferred Language: Italian Communication Ability: Effective Visual Impairment: Limited Hearing Ability: Hard of Hearing Smocker Required: No Beliefs That Will Affect Care: None marital status: Current Living Situation: Family Current Living Situation Comment: and Cat current occupational status: retired and disabled How many Children do You have: 3 Feels Safe at Home: Yes Safety Concerns: Feels Safe At This Time Childhood Exposure to Second-Hand Smoke: Yes Diet: regular Dental Care, Regularly: No Physical Activity Frequency: Does not Exercise Seatbelt Use: sometimes Sunscreen Use: No Assistive Devices: Walker Review of Systems Review of Systems: All systems reviewed & are unremarkable except as noted in HPI & below Physical Exam Constitutional: WD/WN, vitals as above Respiratory: normal respiratory effort, lungs clear to auscultation Gastrointestinal (Abdomen): Percussion/Palpation: + abdomen tender and abdomen soft Skin: no rashes, warm and dry Results & Data Vital Signs (Past 12 Hours) Vital Signs Temp Pulse Pulse Resp BP BP Pulse Ox 12/16/23 08:14 36.4 C L 64 18 150/75 H 100 12/16/23 07:59 36.6 C 60 16 140/66 100 12/16/23 07:36 36.7 C 62 15 147/82 H 100 12/16/23 06:40 99 12/16/23 06:30 100 12/16/23 06:20 100 12/16/23 06:10 99 12/16/23 06:00 99 12/16/23 06:00 133/55 L 12/16/23 05:50 100 12/16/23 05:40 100 12/16/23 05:33 100 12/16/23 05:20 99 12/16/23 05:14 99 12/16/23 05:00 158/62 H 12/16/23 05:00 97 12/16/23 04:56 12/16/23 04:50 98 12/16/23 04:40 98 12/16/23 04:30 98 12/16/23 04:22 64 16 146/66 H 98 12/16/23 04:20 96 12/16/23 04:10 95 12/16/23 04:00 98 12/16/23 04:00 146/66 H 12/16/23 03:50 97 12/16/23 03:40 97 12/16/23 03:30 98 12/16/23 03:20 98 12/16/23 03:10 97 12/16/23 03:00 94 12/16/23 02:50 99 12/16/23 02:40 93 12/16/23 02:30 92 12/16/23 02:20 92 12/16/23 02:10 95 12/16/23 02:00 94 12/16/23 02:00 135/54 L 12/16/23 01:50 96 12/16/23 01:40 97 12/16/23 01:30 100 12/16/23 01:20 100 12/16/23 01:10 99 12/16/23 01:00 100 12/16/23 01:00 161/67 H 12/16/23 00:53 100 12/16/23 00:40 91 12/16/23 00:30 100 12/16/23 00:20 100 12/16/23 00:10 100 12/16/23 00:10 76 16 135/54 L 98 12/16/23 00:10 12/16/23 00:03 100 12/16/23 00:02 160/56 H 12/15/23 23:18 91 12/15/23 23:10 66 17 96 12/15/23 23:00 159/70 H 12/15/23 23:00 67 22 98 12/15/23 22:56 67 17 154/67 H 95 12/15/23 22:50 69 21 95 12/15/23 22:40 68 19 98 12/15/23 22:30 64 17 100 12/15/23 22:20 63 19 100 12/15/23 22:15 77 22 12/15/23 22:00 67 17 100 12/15/23 22:00 154/67 H 12/15/23 21:50 65 17 100 12/15/23 21:40 65 16 100 12/15/23 21:34 63 21 100 12/15/23 21:34 154/69 H 12/15/23 21:30 67 15 100 Pulse Ox O2 Del Method O2 Del Method 12/16/23 08:14 12/16/23 07:59 12/16/23 07:36 12/16/23 06:40 12/16/23 06:30 12/16/23 06:20 12/16/23 06:10 12/16/23 06:00 12/16/23 06:00 12/16/23 05:50 12/16/23 05:40 12/16/23 05:33 12/16/23 05:20 12/16/23 05:14 12/16/23 05:00 12/16/23 05:00 12/16/23 04:56 Room Air 12/16/23 04:50 12/16/23 04:40 12/16/23 04:30 12/16/23 04:22 Room Air 12/16/23 04:20 12/16/23 04:10 12/16/23 04:00 12/16/23 04:00 12/16/23 03:50 12/16/23 03:40 12/16/23 03:30 12/16/23 03:20 12/16/23 03:10 12/16/23 03:00 12/16/23 02:50 12/16/23 02:40 12/16/23 02:30 12/16/23 02:20 12/16/23 02:10 12/16/23 02:00 12/16/23 02:00 12/16/23 01:50 12/16/23 01:40 12/16/23 01:30 12/16/23 01:20 12/16/23 01:10 12/16/23 01:00 12/16/23 01:00 12/16/23 00:53 12/16/23 00:40 12/16/23 00:30 12/16/23 00:20 12/16/23 00:10 12/16/23 00:10 Room Air 12/16/23 00:10 100 Room Air 12/16/23 00:03 12/16/23 00:02 12/15/23 23:18 12/15/23 23:10 12/15/23 23:00 12/15/23 23:00 12/15/23 22:56 Room Air 12/15/23 22:50 12/15/23 22:40 12/15/23 22:30 12/15/23 22:20 12/15/23 22:15 12/15/23 22:00 12/15/23 22:00 12/15/23 21:50 12/15/23 21:40 12/15/23 21:34 12/15/23 21:34 12/15/23 21:30 Laboratory Results 12/16/23 12/16/23 12/15/23 Range/Units 05:29 04:02 Unknown WBC 3.96 L (4.8-10.8) K/ul RBC 2.33 L (4.20-5.40) M/uL Hgb 6.4 L* (12.0-16.0) g/dl Hct 20.7 L* (37.0-47.0) % MCV 88.8 (80.0-100.0) fL MCH 27.5 (25.0-34.0) pg MCHC 30.9 L (32.0-36.0) g/dL RDW Std Deviation 48.6 H (36.4-46.3) fL RDW Coeff of [place] 15.3 H (11.5-14.5) % Plt Count 113 L (130-400) K/uL MPV 11.5 (9.4-12.4) fL Immature Gran % (Auto) 0.3 % Neut % (Auto) 78.4 % Lymph % (Auto) 12.4 % [place] % (Auto) 5.6 % Eos % (Auto) 3.0 % Baso % (Auto) 0.3 % Neut # (Auto) 3.11 (1.40-6.50) K/uL Lymph # (Auto) 0.49 L (1.20-3.40) K/uL [place] # (Auto) 0.22 (0.11-0.59) K/uL Eos # (Auto) 0.12 (0.00-0.50) K/uL Baso # (Auto) 0.01 (0.00-0.20) K/uL Immature Gran # (Auto) 0.01 (0.01-0.20) K/uL RBC Morphology Unremarkable PT (9.0-12.0) Seconds INR (0.9-1.1) APTT (21-31) Seconds PTT Ratio VBG pH (7.36-7.41) VBG pCO2 (38-50) mmHg VBG pO2 mmHg VBG HCO3 mmol/L VBG O2 Saturation % VBG Base Excess mEq/L Sodium 136 135 L (136-145) mmol/L Potassium 3.8 4.3 D (3.5-5.1) mmol/L Chloride 113 H 110 H (98-107) mmol/L Carbon Dioxide 16 L 16 L (21-32) mmol/L Anion Gap 7 9 (3-11) BUN 28 H 33 H (6-23) mg/dl Creatinine 1.70 H 2.08 H (0.6-1.2) mg/dl Est Cr Clr Drug Dosing 15.1 12.3 ml/min Est GFR ( Amer) 33.4 26.1 ml/min Est GFR (Non-Af Amer) 28.8 22.6 ml/min BUN/Creatinine Ratio 16.5 15.9 (10-20) Glucose 131 H 136 H (70-99(Fasting)) mg/dl Lactate (0.4-2.0) mmol/L Calcium 8.2 L 9.0 (8.6-10.3) mg/dl Magnesium 2.0 1.8 (1.7-2.4) mg/dl Total Bilirubin 1.9 H 2.9 H (0.2-1.0) mg/dl Direct Bilirubin 1.3 H 1.8 H (0-0.2) mg/dl AST 129 H 237 H (13-39) U/L ALT 64 H 97 H (7-52) U/L Alkaline Phosphatase 494 H 725 H (34-104) U/L Troponin I High Sens 49.7 H (0-14) pg/ml Total Protein 4.5 L D 6.3 (6.0-8.3) gm/dl Albumin 2.1 L 2.9 L (3.4-5.0) gm/dl Lipase 13 (11-82) U/L Urine Color Dark Yellow Urine Appearance Clear (Clear) Urine pH 5.0 (4.5-7.5) Ur Specific [place] 1.015 (1.000-1.030) Urine Protein Trace H (Negative) Urine Glucose (UA) Negative (Negative) Urine Ketones Trace H (Negative) Urine Blood Negative (Negative) Urine Nitrite Positive A (Negative) Urine Bilirubin 2+ H (Negative) Urine Urobilinogen Positive H (Negative) Ur Leukocyte Esterase 1+ H (Negative) Urine WBC (Auto) 10-30 H (0-5) /hpf Urine RBC (Auto) 0-4 (0-4) /hpf U Hyaline Cast (Auto) 10-30 H (0-5) /lpf U Epithel Cells (Auto) >30 H (0-5) /lpf Urine Bacteria (Auto) Negative (Negative) Blood Type A Positive Blood Type Recheck A Positive Antibody Screen NEGATIVE Crossmatch See Detail 12/15/23 12/15/23 Range/Units 22:37 19:31 WBC 7.38 (4.8-10.8) K/ul RBC 3.16 L (4.20-5.40) M/uL Hgb 8.9 L (12.0-16.0) g/dl Hct 27.9 L (37.0-47.0) % MCV 88.3 (80.0-100.0) fL MCH 28.2 (25.0-34.0) pg MCHC 31.9 L (32.0-36.0) g/dL RDW Std Deviation 49.6 H (36.4-46.3) fL RDW Coeff of [place] 15.3 H (11.5-14.5) % Plt Count 166 (130-400) K/uL MPV 11.8 (9.4-12.4) fL Immature Gran % (Auto) 0.5 % Neut % (Auto) 90.6 % Lymph % (Auto) 5.0 % [place] % (Auto) 3.3 % Eos % (Auto) 0.3 % Baso % (Auto) 0.3 % Neut # (Auto) 6.69 H (1.40-6.50) K/uL Lymph # (Auto) 0.37 L (1.20-3.40) K/uL [place] # (Auto) 0.24 (0.11-0.59) K/uL Eos # (Auto) 0.02 (0.00-0.50) K/uL Baso # (Auto) 0.02 (0.00-0.20) K/uL Immature Gran # (Auto) 0.04 (0.01-0.20) K/uL RBC Morphology PT 12.3 H (9.0-12.0) Seconds INR 1.1 (0.9-1.1) APTT 26 (21-31) Seconds PTT Ratio 0.9 VBG pH 7.25 L (7.36-7.41) VBG pCO2 41 (38-50) mmHg VBG pO2 24 mmHg VBG HCO3 18 mmol/L VBG O2 Saturation < 60.0 % VBG Base Excess -8.8 mEq/L Sodium 136 (136-145) mmol/L Potassium 4.1 (3.5-5.1) mmol/L Chloride 112 H (98-107) mmol/L Carbon Dioxide 16 L (21-32) mmol/L Anion Gap 8 (3-11) BUN 31 H (6-23) mg/dl Creatinine 1.93 H (0.6-1.2) mg/dl Est Cr Clr Drug Dosing 13.3 ml/min Est GFR ( Amer) 28.6 ml/min Est GFR (Non-Af Amer) 24.7 ml/min BUN/Creatinine Ratio 16.1 (10-20) Glucose 79 (70-99(Fasting)) mg/dl Lactate 0.9 (0.4-2.0) mmol/L Calcium 8.8 (8.6-10.3) mg/dl Magnesium (1.7-2.4) mg/dl Total Bilirubin (0.2-1.0) mg/dl Direct Bilirubin (0-0.2) mg/dl AST (13-39) U/L ALT (7-52) U/L Alkaline Phosphatase (34-104) U/L Troponin I High Sens 51.3 H* (0-14) pg/ml Total Protein (6.0-8.3) gm/dl Albumin (3.4-5.0) gm/dl Lipase (11-82) U/L Urine Color Urine Appearance (Clear) Urine pH (4.5-7.5) Ur Specific [place] (1.000-1.030) Urine Protein (Negative) Urine Glucose (UA) (Negative) Urine Ketones (Negative) Urine Blood (Negative) Urine Nitrite (Negative) Urine Bilirubin (Negative) Urine Urobilinogen (Negative) Ur Leukocyte Esterase (Negative) Urine WBC (Auto) (0-5) /hpf Urine RBC (Auto) (0-4) /hpf U Hyaline Cast (Auto) (0-5) /lpf U Epithel Cells (Auto) (0-5) /lpf Urine Bacteria (Auto) (Negative) Blood Type Blood Type Recheck Antibody Screen Crossmatch
[2023-12-16] MEDS: PIPERACILLIN/TAZOBACTAM 4.5 GM in DEXTROSE 5% MINI-B 100 ML IV SCH (11:28)
[2023-12-16 13:05] LABS: Influenza A virus by PCR Negative (Neg); Influenza B virus by PCR Negative (Neg); RSV by PCR Negative (Neg); SARS CoV2 RNA(COVID-19) Ceph NEGATIVE (Negative)
--- NOTE | 2023-12-16 14:52 | Discharge Summary ---
Date of Service December 16, 2023 Admission HPI Per Admitting Provider Kat is a 78-year-old female with PMH of myotonic dystrophy, CKD, abnormal weight loss, restless leg syndrome, and dysalbuminemic hyperthyroxinemia. She presented at the behest of her PCP on 12/14 for abnormal liver and kidney labs drawn outpatient. Patient also notes she has been having intermittent abdominal pain that started on Monday 12/11 with an acute worsening the evening of Wednesday 12/13. Patient is unsure how long it usually lasts, but notes last night it lasted for several hours and her RLQ. She is unable to characterize the pain, but reports it is 10/10 at its worst. She did not take any medicine at the time for her pain. Laying down after 2 hours did not resolve the pain. She is unsure if it is worse with eating as she has not been eating much due to her myotonic dystrophy. Patient notes that she has lost 20 pounds over the past month, and has had gradual weight loss since 2020 since having COVID (which she has had 3 times). Patient denies smoking, tobacco use, and alcohol use. She denies any recent injuries to her abdomen or pelvis. She does note that she fell last summer, and that she has had some difficulty with ambulation; ambulates with a walker/cane at baseline. She also notes that she has a "blood clot" in her aorta which she would not like any surgical interventions for. She is unable to explain why she is not currently on a blood thinner, but notes she does take baby aspirin; she notes she is unable to take more than 81 mg as she has an aspirin allergy and will exacerbate her asthma. Of note, the patient was recently admitted at [facility] for COVID for 4 days at the beginning of December; required oxygen at the time. No supplemental oxygen use or CPAP at home. Patient reports she did not take any of her regular morning medications today; she manages her medications at home. She does have a history of abdominal surgeries, notes that she is s/p appendectomy and cholecystectomy. Patient is mildly hypotensive at 103/53 at time of admission; vitals otherwise stable. ED course: NSS 1000 mL IV Magnesium sulfate 1 g IV Calcium gluconate 1000 mg IV ROS: Patient endorses sweating, unclear if fever was present, chills, dry cough, intermittent abdominal pain, diarrhea x1 episode, urinary s/s, urinary retention, dysuria, back pain (ongoing) Patient denies chest pain, SOB, pleuritic CP, chest palpitations, nausea, vomiting, blood in the urine/stool, burning with urination, saddle anesthesia, or N/T in the legs. She underwent MRCP, report 1. Status post cholecystectomy with central intrahepatic and extrahepatic biliary distention, the common hepatic duct reaching 10.3 mm of in maximum dimension. There is a stone within the distal common bile duct measuring 7.5 mm. 2. Abdominal aortic aneurysm measured at approximately 3.7 cm. 3. Left lower lobe atelectasis. 4. Atrophy of the left kidney. GI recommended a transfer to [facility] for ERCP, bed requested, patient is accepted in transfer, for anemia received 1 unit of blood, no signs of bleeding . Stable for transfer Principal Diagnosis common bile duct stone ascending cholangitis Discharge Exam general cachectic looking woman, not in acute distress head atraumatic neck supple chest decreased breath sounds b/l heart S1S2 regular abdomen soft, NT, ND, BS present extremities no edema, no cyanosis Discharge Data Allergies Allergy/AdvReac Type Severity Reaction Status Date / Time aspirin Allergy Severe ASTHMA Verified 12/11/23 13:35 ATTACK clopidogrel Allergy Unknown PT DOESN'T Verified 12/11/23 13:35 REMEMBER erythromycin base AdvReac Unknown NAUSEATED;ABD Verified 12/11/23 13:35 PAIN quinine AdvReac Unknown ABD PAIN Verified 12/11/23 13:35 Sulfa (Sulfonamide AdvReac Unknown ORTEZ;GI UPSET Verified 12/11/23 13:35 Antibiotics) Ammonium Carbonate Allergy Severe SMELLING Uncoded 12/11/23 13:35 SALTS - ASTHMA ATTACK Consultations 12/15/23 20:41 ED Decision to Admit Stat 12/16/23 00:10 Consult Gastroenterology Routine Ordered Studies 12/15/23 19:25 CT abd pelvis wo con Stat 12/15/23 22:27 MRI MRCP [MR MRCP] Routine Hospital Course (1) Elevated liver transaminase level: Intermittent abdominal pain since Monday 12/11 with an acute worsening the evening of 310 Bilirubin 2.9, AST 237, ALT 97, and alk phos 725 S/p cholecystectomy and appendectomy A/P CT revealed unremarkable pancreas; severe plaque formation to the bilateral common iliac arteries; patient was aware of plaque formation prior to admission, and would not like any vascular intervention at this time She is unsure why she is not currently on blood thinners; currently on aspirin a nd atorvastatin daily, will continue inpatient Lactate and VBG ordered, pending MRI 1. Status post cholecystectomy with central intrahepatic and extrahepatic biliary distention, the common hepatic duct reaching 10.3 mm of in maximum dimension. There is a stone within the distal common bile duct measuring 7.5 mm. 2. Abdominal aortic aneurysm measured at approximately 3.7 cm. 3. Left lower lobe atelectasis. 4. Atrophy of the left kidney. transfer for ERCP (2) Severe malnutrition: Progressive weight loss since 2020; started shortly after a bout with COVID Patient attributes it to her myotonic dystrophy Nutrition consult; lactose intolerance Patient was supposed to have an appointment on 12/25 (3) Acute kidney injury superimposed on chronic kidney disease: Avoid nephrotoxic agents Hold lisinopril IVF with LR at 125mL/hr Unclear etiology; may be secondary to hypoperfusion of the kidneys (patient notes that she was drinking 2 bottles of water a day, but then decreased it to 1) BUN/creatinine 15.9 Patient does note decreased urinary output; bladder scan/straight cath as needed Recheck a.m. labs (4) Elevated troponin: Troponin elevated at 49.7 on arrival, repeat pending EKG revealed NSR at 69 bpm; QTc 430 Echo performed on 11/26/2023 at [facility] revealed LVEF at 69% and grade 1 (mildly abnormal) diastolic Clinically, patient denies chest pain, SOB, pleuritic CP Continuous telemetry monitoring (5) Hyperkalemia: K 5.9-->4.3 on arrival after receiving fluids Given calcium gluconate in the ED BMP recheck ordered, pending (6) Sleep apnea: Not currently on CPAP (7) Myotonic dystrophy: Chronic; noted (8) Hypotension: BP 103/53 at time of admission Hold labetalol, hydrochlorothiazide for now Patient is unsure if she is on amlodipine, but believes she was taking in the past for leg swelling (9) Anemia: Hgb 9.9-->8.9 ->6.4 , no signs of bleeding received 1 unit Plan Disposition: Admit to PCU telemetry Full code Dietitian consulted given severe malnutrition; lactose intolerance VTE PPx: Lovenox 5000mg SQ q12h Total Time Total Time Spent Total Time Spent (In Minutes): 60 Discharge Plan Discharge Items Patient Disposition: Transfer Acute Care Hospital Reason For Visit: ABDOMINAL PAIN, ABDNORMAL OUTPATIENT LABS Discharge Diagnosis: acute ascending cholangitis Activity: Per Instructions section Non-emergency contact: Primary Care Provider Call non-emergency contact if: you have a fever Follow-up/Referrals: Albino Ramos MD [Primary Care Provider] - Diet: Nothing by Mouth Addtl Attending Provider Instructions: transfer Pending Studies at Discharge: No Stand-Alone Forms: My [facility] Skilled Items Patient informed of condition?: Yes DNR: No Discharge Level of Care: Other Communicable Disease: No Discharge Prognosis: Improving Lines: Peripheral IV Urinary Catheter: Yes Medications and DC Order Prescriptions: Continued labetalol 100 mg tablet 50 mg PO BID Qty: 90 1RF albuterol sulfate 90 mcg/actuation HFA aerosol inhaler 2 puff inhalation Q6H PRN (Reason: Shortness Of Breath Or Wheezing) (DME) Elastic Band Blue 6 foot See Rx Instructions .Route .MEDSUPPLY Qty: 1 0RF Rx Instructions: As directed tie in loop ergocalciferol (vitamin D2) 1,250 mcg (50,000 unit) capsule 50,000 unit PO WEEKLY Qty: 12 0RF fluticasone propion-salmeterol [Wixela Inhub] 500-50 mcg/dose blister with device 1 inh inhalation DAILY Qty: 60 5RF mirtazapine 15 mg tablet 15 mg PO HS Qty: 90 1RF pramipexole 0.5 mg tablet 0.5 mg PO QPM Qty: 90 1RF levothyroxine 75 mcg tablet 75 mcg PO Q OTHER DAY fluticasone propionate 50 mcg/actuation spray,suspension 2 spray INTRANASAL DAILY Discontinued fexofenadine 180 mg tablet 180 mg PO DAILY Qty: 90 3RF zolpidem 5 mg tablet 5 mg PO ONCE PRN (Reason: insomnia) Qty: 30 5RF amlodipine 5 mg tablet 5 mg PO DAILY Qty: 90 1RF atorvastatin 40 mg tablet 40 mg PO DAILY Qty: 90 1RF lisinopril 40 mg tablet 40 mg PO DAILY Qty: 90 1RF famotidine 20 mg tablet 20 mg PO BID Qty: 60 1RF alendronate 70 mg tablet 70 mg PO .once a week aspirin [Adult Aspirin Regimen] 81 mg tablet,delayed release (DR/EC) 81 mg PO DAILY hydrochlorothiazide 25 mg tablet 25 mg PO QAM ferrous sulfate [Feosol] 325 mg (65 mg iron) Tablet 325 mg PO DAILY Discharge Orders: Discharge Order (Routine); Ordered 12/16/23 Ordered By: Saundra Larose Admission Data Admit Date/Time: 12/15/23 21:46 Attending Provider: Saundra Larose Admit Provider: Celia Mathis Primary Care Provider: Albino Ramos Other Providers: Celia Mathis; Jonh Cassiyd Jr Coding Level of Care Code INP/OBS EV SAME DAY LV 2,70MIN Diagnoses Elevated liver transaminase level R74.01 Severe malnutrition E43 Acute kidney injury superimposed on chronic kidney disease N17.9; N18.9 Elevated troponin R79.89 Hyperkalemia E87.5 Sleep apnea G47.30 Myotonic dystrophy G71.11 Hypotension I95.9 Anemia D64.9
[2023-12-16 15:29] LABS: Basophils # (auto) 0.04 K/uL (0.00-0.20); Basophils % (auto) 0.8 %; Eosinophils # (auto) 0.27 K/uL (0.00-0.50); Eosinophils % (auto) 5.6 %; Hematocrit (blood only) 34.4 % (37.0-47.0); Hemoglobin 11.3 g/dl (12.0-16.0); Immature Granulocytes # (auto) 0.02 K/uL (0.01-0.20); Immature Granulocytes % (auto) 0.4 %; Lymphocytes # (auto) 0.46 K/uL (1.20-3.40); Lymphocytes % (auto) 9.5 %; Mean Corpuscular Hemoglobin 28.9 pg (25.0-34.0); Mean Corpuscular Hgb Conc 32.8 g/dL (32.0-36.0); Mean Platelet Volume 11.5 fL (9.4-12.4); Monocytes # (auto) 0.36 K/uL (0.11-0.59); Monocytes % (auto) 7.5 %; Neutrophils # (auto) 3.67 K/uL (1.40-6.50); Neutrophils % (auto) 76.2 %; Platelet Count 129 K/uL (130-400); RDW Coefficient of Variation 14.7 % (11.5-14.5); RDW Standard Deviation 47.1 fL (36.4-46.3); Red Blood Count 3.91 M/uL (4.20-5.40); White Blood Count 4.82 K/ul (4.8-10.8)
[2023-12-16] MEDS ORDERED: MIRTAZAPINE TAB 15 MG TAB PO SCH (21:00)
[2023-12-16] MEDS ORDERED: PRAMIPEXOLE DIHYDROCHLO 0.5 MG TAB PO SCH (21:00)
--- NOTE | 2023-12-18 21:42 | Electrocardiogram Report ---
Test Reason : Blood Pressure : / mmHG Vent. Rate : 069 BPM Atrial Rate : 069 BPM P-R Int : 156 ms QRS Dur : 092 ms QT Int : 402 ms P-R-T Axes : 069 021 104 degrees QTc Int : 430 ms Normal sinus rhythm Nonspecific T wave abnormality Abnormal ECG No previous ECGs available Confirmed by Campbell Webb ([id number]) on 12/18/2023 9:41:41 PM Referred By: Albino Ramos Confirmed By:Campbell Webb
== END 2023-12-16 15:34 | disposition short-term general hospital (02) | DRG 444 ==
LOC: ED 19:08 → SUATTDRO 21:46 → EDINP 21:46